=== PATIENT | male | born 1970 | race Asian ===

== ENCOUNTER 2018-08-08 05:38 | Day surgery (SDC) | payer OTHER ==
[2018-08-08] MEDS ORDERED: MIDAZOLAM 1 MG/ML 2 ML INJ ×2 (08:44→08:45)
[2018-08-08] MEDS ORDERED: FENTAnyl 50 MCG/ML VIAL (08:45)
== END 2018-08-08 09:19 | disposition home or self-care (01) ==
LOC: GIL 05:38
DX: K29.50 Unspecified chronic gastritis without bleeding (principal)
CPT/HCPCS: 43239; 88305; 88312

== ENCOUNTER 2018-09-19 08:32 | Day surgery (SDC) | payer OTHER ==
[2018-09-19] MEDS ORDERED: FENTAnyl 50 MCG/ML VIAL (11:19)
[2018-09-19] MEDS ORDERED: MIDAZOLAM 1 MG/ML 2 ML INJ ×2 (11:20)
== END 2018-09-19 14:15 | disposition home or self-care (01) ==
LOC: GIL 08:32
DX: Z12.11 Encounter for screening for malignant neoplasm of colon (principal); K64.8 Other hemorrhoids
CPT/HCPCS: 45378